=== PATIENT | male | born 1975 | race Caucasian/White ===

== ENCOUNTER 2018-10-18 19:06 | Emergency (ER) | payer OTHER ==
[2018-10-18] MEDS: IBUPROFEN 800 MG TAB PO (20:55)
== END 2018-10-18 21:45 | disposition home or self-care (01) ==
LOC: FTE 19:06
DX: J40 Bronchitis, not specified as acute or chronic (principal); H66.93 Otitis media, unspecified, bilateral
CPT/HCPCS: 71046; 99283-25

== ENCOUNTER 2018-12-22 17:22 | Emergency (ER) | payer OTHER | END 2018-12-22 19:41 | disposition home or self-care (01) | LOC: FTE 17:22 | DX: R05 Cough (principal); I10 Essential (primary) hypertension | CPT/HCPCS: 99283; Z7502 ==